=== PATIENT | male | born 1985 | race African-American/Black ===

== ENCOUNTER 2020-09-21 23:07 | Emergency (ER) | payer OTHER ==
[~2020-09-21] VITALS: Ht 188 cm; Wt 149.7 kg
[2020-09-21 23:20] VITALS: BP 143/100
[2020-09-21] MEDS ORDERED: ATORVASTATIN CA80 MG PO (23:25)
[2020-09-21] MEDS ORDERED: LOPRESSOR50 MG PO (23:25)
[2020-09-21] MEDS ORDERED: SPIRONOLACTONE25 MG PO (23:25)
[2020-09-21] MEDS ORDERED: ENTRESTO 97 MG1 EACH (23:25)
[2020-09-21] MEDS ORDERED: LASIX 40 MG TAB40 MG PO (23:25)
[2020-09-21] MEDS ORDERED: POTASSIUM20 PO (23:26)
[2020-09-21] MEDS ORDERED: PREDNISONE 10 M10 MG PO (23:26)
== END 2020-09-22 01:00 | disposition home or self-care (01) ==
LOC: ER 23:07
DX: R06.7 Sneezing (principal); Z20.822 Contact with and (suspected) exposure to COVID-19; R05 Cough; R53.83 Other fatigue; I11.0 Hypertensive heart disease with heart failure; I50.9 Heart failure, unspecified; Z95.0 Presence of cardiac pacemaker